=== PATIENT | female | born 1990 | race Caucasian/White ===

== ENCOUNTER 2023-10-19 15:31 | Emergency (ER) | payer MEDICAID ==
[~2023-10-19] VITALS: Ht 165.1 cm; Wt 79.0 kg
[2023-10-19 15:41] VITALS: BP 156/102; PULSE 101; RESP 20; TEMP 99.1; O2SAT 98
[2023-10-19] MEDS ORDERED: ACETAMINOPHEN EXTRA STRENGTH 500 MG TAB PO ONE (16:15)
[2023-10-19] MEDS ORDERED: AMPICILLIN/SULBACTAM 1.5 GM in NACL 0.9% 50 ML IV ONE (16:15)
[2023-10-19] MEDS ORDERED: LIDOCAINE MPF 1% 10 MG/ML VIAL INJ ONE (16:15)
[2023-10-19] MEDS ORDERED: AMPICILLIN/SULBACTAM 1.5 GM VIAL ONE (16:27)
[2023-10-19] MEDS ORDERED: HYDROcodone/APAP 5/325 MG 1 TAB TAB PO ONE (17:05)
[2023-10-19] MEDS ORDERED: BACITRACIN OINT 500 UNITS/GM PKT TP ONE (18:00)
[2023-10-19] MEDS ORDERED: MUPI2CRE22 TP (19:00)
[2023-10-19] MEDS ORDERED: ACET-10509 PO (19:00)
[2023-10-19] MEDS ORDERED: CLIN300C52 PO (19:00)
[2023-10-19] MEDS ORDERED: AMOX1TAB8 PO (19:00)
[2023-10-19 19:15] VITALS: BP 149/89; PULSE 98; RESP 20; TEMP 98; O2SAT 99
== END 2023-10-19 19:15 | disposition home or self-care (01) ==
LOC: MED 15:31
DX: O9A.213 Injury, poisoning and certain other consequences of external causes complicating pregnancy, third trimester (principal); S51.812A Laceration without foreign body of left forearm, initial encounter; O10.913 Unspecified pre-existing hypertension complicating pregnancy, third trimester; Z3A.29 29 weeks gestation of pregnancy; Z79.899 Other long term (current) drug therapy; Z79.2 Long term (current) use of antibiotics; W54.0XXA Bitten by dog, initial encounter; Y93.89 Activity, other specified; Y92.89 Other specified places as the place of occurrence of the external cause; Y99.8 Other external cause status
CPT/HCPCS: 12005; 73090; 90471; 90715; 96365; 99284; J0295; J2001; Q0092